=== PATIENT | female | born 1950 | race Caucasian/White ===

== ENCOUNTER 2017-07-01 17:34 | Emergency (ER) | payer MEDICARE ==
[~2017-07-01 17:34] MED LIST: ALLOPURINOL100 MG PO; AMLODIPINE BESY10 MG PO; AUGMENTIN 875-1 EACH PO; CALCIUM600 MG PO; CARAFATE1 GM PO; CETIRIZINE HCL10 MG PO; CLONAZEPAM 1MG T1 MG PO; DULERA 100 MCG8.8 GM PO; GARAMYCIN20 DROPS/M OS; HYDROCODONE/APA1 TAB PO; MUCINEX 600MG600 MG PO; NASACORT16.9 ML; NEXIUM40 MG PO; PRENATAL FORMU1 EACH PO; SEROQUEL 100MG100 MG PO; SOMA350 MG PO; TRAZODONE 50MG50 MG PO; UROCIT-K10 MEQ PO; ZOLOFT100 MG PO
[2017-07-01 18:28] LABS: ALBUMIN 2.8 g/dL (3.4-4.8); BASOPHIL 0.1 % (0-2); BILIRUBIN - TOTAL 0.5 mg/dL (0.1-1.0); CREATININE 1.2 mg/dL (0.5-1.0); EOSINOPHIL 0 % (0-7); GLOBULIN (CALCULATION) 4.4 g/dL (2.2-4.2); HGB 13.2 g/dl (12.5-16.0); LYMPHOCYTE 3.1 % (15-48); MCH 29.9 pg (25.0-31.0); MCHC 33.8 g/dL (32.0-36.0); MCV 88.4 fL (78.0-100.0); MONOCYTE 4.5 % (0-12); MPV 10.7 fL (6.0-9.5); PLT 346 K/uL (150-400); POTASSIUM 4.5 mmol/L (3.5-5.1); RBC 4.41 M/uL (4.20-5.40); RDW 13.8 % (11.5-14.0); TOTAL PROTEIN 7.2 g/dL (6.4-8.3)
[2017-07-01 18:31] LABS: WBC 39.7 K/uL (4.0-10.5)
[2017-07-01 18:32] LABS: NEUTROPHIL 92.3 % (41-80)
[2017-07-01 21:04] LABS: LACTIC ACID 1.1 mmol/L (0.5-2.2)
[2017-07-01 22:48] LABS: BILIRUBIN NEGATIVE (NEGATIVE); BLOOD 3+ Ery/uL (NEGATIVE); CLARITY CLEAR (CLEAR); COLOR YELLOW (YELLOW); GLUCOSE (U) NORMAL (NORMAL); KETONE (U) NEGATIVE (NEGATIVE); LEUKOCYTES TRACE Leu/uL (NEGATIVE); NITRITE NEGATIVE (NEGATIVE); PROTEIN 1+ mg/dL (NEGATIVE); UROBILINOGEN 0.2 mg/dL (0.2-1.0)
[2017-07-01 22:59] LABS: BACTERIA TRACE
[2017-07-01 23:00] LABS: GRANULAR CASTS TRACE
== END 2017-07-01 23:32 | disposition other institution (70) ==
LOC: FER 17:34
PROVIDERS: Internal Medicine
DX: J96.01 Acute respiratory failure with hypoxia (principal); J90 Pleural effusion, not elsewhere classified; I10 Essential (primary) hypertension; J45.909 Unspecified asthma, uncomplicated; Z95.1 Presence of aortocoronary bypass graft; Z88.6 Allergy status to analgesic agent; Z88.5 Allergy status to narcotic agent; Z88.1 Allergy status to other antibiotic agents; Z91.041 Radiographic dye allergy status
CPT/HCPCS: 36415; 36600; 71010; 71250; 80053; 81001; 82803; 83605; 84484; 85025; 85379; 87040; 87076; 87088; 87186; 93005; J1885; J1940; J2543